=== PATIENT | female | born 1990 | race Hispanic/Latino ===

== ENCOUNTER 2019-06-24 18:49 | Emergency (ER) | payer OTHER ==
--- NOTE | 2019-06-24 19:51 | ER ---
Nurse's Notes [facility] Name: Yehuda Varghese Age: 29 yrs Sex: Female : 1990 Arrival Date: 06/24/2019 Time: 18:50 Bed 10 Private MD: Diagnosis: Conjunctivitis Presentation: 06/24 18:51 Presenting complaint: Patient states: yesterday i think i have pink on my L eye, it hj hurts and it isidro;. Transition of care: patient was not received from another setting of care. Onset of symptoms was June 24, 2019. Risk Assessment: Do you want to hurt yourself or someone else? Patient reports no desire to harm self or others. Initial Sepsis Screen: Does the patient meet any 2 criteria? No. Patient's initial sepsis screen is negative. Does the patient have a suspected source of infection? No. Patient's initial sepsis screen is negative. Care prior to arrival: None. 18:51 Method Of Arrival: Ambulatory 18:51 Acuity: HOWIE 4 hj Historical: - Allergies: 18:52 No Known Allergies; hj - PMHx: 18:52 None; hj - Immunization history:: Adult Immunizations up to date. - Ebola Screening: : Patient denies travel to an Ebola-affected area in the 21 days before illness onset. Screenin:29 Abuse screen: Denies threats or abuse. Denies injuries from another. Nutritional aj1 screening: No deficits noted. Tuberculosis screening: No symptoms or risk factors identified. Fall Risk None identified. Assessment: 20:27 General: Appears in no apparent distress. comfortable, Behavior is calm, cooperative, aj1 appropriate for age. Pain:. 20:27 Pain: Complains of pain in left eye. Neuro: Level of Consciousness is awake, alert, aj1 obeys commands. Cardiovascular: Patient's skin is warm and dry. Respiratory: Airway is patent Respiratory effort is even, unlabored, Respiratory pattern is regular, symmetrical. GI: No signs and/or symptoms were reported involving the gastrointestinal system. : No signs and/or symptoms were reported regarding the genitourinary system. EENT: Sclera/Cornea are reddened in outer aspect of conjuctiva of left eye, iris of left eye and inner aspect of conjunctiva of left eye. Derm: No signs and/or symptoms reported regarding the dermatologic system. Skin is pink, warm \T\ dry. normal. Musculoskeletal: No signs and/or symptoms reported regarding the musculoskeletal system. Circulation, motion, and sensation intact. Vital Signs: 18:52 BP 107 / 65; Pulse 82; Resp 18; Temp 98.1(O); Pulse Ox 100% on R/A; Weight 58.97 kg; hj Height 5 ft. 2 in. (157.48 cm); Pain 7/10; 18:52 Body Mass Index 23.78 (58.97 kg, 157.48 cm) ED Course: 18:50 Patient arrived in ED. rg4 18:51 Triage completed. hj 18:52 Arm band placed on left wrist. hj 19:11 Porsha Shukla FNP-C is [facility]. kb 19:11 Eladio Aguilar MD is Attending Physician. kb 20:27 Olesya Thompson, RN is Primary Nurse. aj1 20:27 Patient has correct armband on for positive identification. aj1 20:27 No provider procedures requiring assistance completed. Patient did not have IV access aj1 during this emergency room visit. Administered Medications: No medications were administered Outcome: 19:51 Discharge ordered by MD. kb 20:27 Discharged to home ambulatory. aj1 20:27 Condition: good 20:27 Discharge instructions given to patient, Instructed on discharge instructions, follow up and referral plans. medication usage, Demonstrated understanding of instructions, follow-up care, medications, Prescriptions given X 1. 20:29 Patient left the ED. aj1 Signatures: Porsha Shukla FNP-C FNP-Ckb Johnson, Angela, RN RN aj1 Neo Holland RN RN hj Garcia, Rubi rg4
--- NOTE | 2019-06-24 19:51 | EDPHYS ---
Physician Documentation [facility] Name: Yehuda Varghese Age: 29 yrs Sex: Female : 1990 Arrival Date: 06/24/2019 Time: 18:50 Bed 10 Private MD: ED Physician Eladio Aguilar HPI: 06/24 20:11 This 29 yrs old Female presents to ER via Ambulatory with complaints of Eye kb Problem. 20:11 The patient is experiencing burning, matting or discharge, redness, itching, The kb patient sustained None. to the left eye, caused by an unknown mechanism. Onset: The symptoms/episode began/occurred today. Duration: the symptoms are continuous. Aggravated by nothing. Alleviated by nothing. Associated signs and symptoms: Pertinent positives: None. Severity of symptoms: At their worst the symptoms were mild in the emergency department the symptoms are unchanged. The patient has not experienced similar symptoms in the past. The patient has not recently seen a physician. Pt reports redness, burning/itching, and matting to left eye that started this morning. . Historical: - Allergies: 18:52 No Known Allergies; hj - PMHx: 18:52 None; hj - Immunization history:: Adult Immunizations up to date. - Ebola Screening: : Patient denies travel to an Ebola-affected area in the 21 days before illness onset. ROS: 20:11 Constitutional: Negative for fever, chills, and weight loss, ENT: Negative for injury, kb pain, and discharge, Neck: Negative for injury, pain, and swelling, Cardiovascular: Negative for chest pain, palpitations, and edema, Respiratory: Negative for shortness of breath, cough, wheezing, and pleuritic chest pain, Abdomen/GI: Negative for abdominal pain, nausea, vomiting, diarrhea, and constipation, MS/Extremity: Negative for injury and deformity, Skin: Negative for injury, rash, and discoloration, Neuro: Negative for headache, weakness, numbness, tingling, and seizure. 20:11 Eyes: Positive for itching, matting, redness. Exam: 20:11 Constitutional: This is a well developed, well nourished patient who is awake, alert, kb and in no acute distress. Head/Face: Normocephalic, atraumatic. ENT: Nares patent. No nasal discharge, no septal abnormalities noted. Tympanic membranes are normal and external auditory canals are clear. Oropharynx with no redness, swelling, or masses, exudates, or evidence of obstruction, uvula midline. Mucous membranes moist. Neck: Trachea midline, no thyromegaly or masses palpated, and no cervical lymphadenopathy. Supple, full range of motion without nuchal rigidity, or vertebral point tenderness. No Meningismus. Chest/axilla: Normal chest wall appearance and motion. Nontender with no deformity. No lesions are appreciated. Cardiovascular: Regular rate and rhythm with a normal S1 and S2. No gallops, murmurs, or rubs. Normal PMI, no JVD. No pulse deficits. Respiratory: Lungs have equal breath sounds bilaterally, clear to auscultation and percussion. No rales, rhonchi or wheezes noted. No increased work of breathing, no retractions or nasal flaring. Abdomen/GI: Soft, non-tender, with normal bowel sounds. No distension or tympany. No guarding or rebound. No evidence of tenderness throughout. Skin: Warm, dry with normal turgor. Normal color with no rashes, no lesions, and no evidence of cellulitis. MS/ Extremity: Pulses equal, no cyanosis. Neurovascular intact. Full, normal range of motion. Neuro: Awake and alert, GCS 15, oriented to person, place, time, and situation. Cranial nerves II-XII grossly intact. Motor strength 5/5 in all extremities. Sensory grossly intact. Cerebellar exam normal. Normal gait. 20:11 Eyes: Conjunctiva: injected, in the left eye. Vital Signs: 18:52 BP 107 / 65; Pulse 82; Resp 18; Temp 98.1(O); Pulse Ox 100% on R/A; Weight 58.97 kg; hj Height 5 ft. 2 in. (157.48 cm); Pain 7/10; 18:52 Body Mass Index 23.78 (58.97 kg, 157.48 cm) MDM: 19:27 Patient medically screened. kb 20:11 Data reviewed: vital signs, nurses notes. Data interpreted: Pulse oximetry: on room air kb is 100 %. Interpretation: normal. 20:29 Counseling: I had a detailed discussion with the patient and/or guardian regarding: the kb historical points, exam findings, and any diagnostic results supporting the discharge/admit diagnosis, the need for outpatient follow up, an opthalmologist, to return to the emergency department if symptoms worsen or persist or if there are any questions or concerns that arise at home. Administered Medications: No medications were administered Disposition: 21:15 Co-signature as Attending Physician, Eladio Aguilar MD. rn Disposition: 06/24/19 19:51 Discharged to Home. Impression: Conjunctivitis. - Condition is Stable. - Discharge Instructions: Bacterial Conjunctivitis, [id number]. - Prescriptions for Vigamox 0.5 % Ophthalmic Drops - instill 1 drop by OPHTHALMIC route every 8 hours for 7 days; 5 milliliter. - Medication Reconciliation Form, Thank You Letter, Antibiotic Education, Prescription Opioid Use form. - Follow up: Emergency Department; When: As needed; Reason: Worsening of condition. Follow up: Private Physician; When: 2 - 3 days; Reason: Recheck today's complaints, Continuance of care, Re-evaluation by your physician. Signatures: Porsha Shukla, JENISE GONZALEZP-Olesya Betancur RN RN aj1 Eladio Aguilar MD MD rn Joaquin, Henry, RN RN Corrections: (The following items were deleted from the chart) 20:29 19:51 06/24/2019 19:51 Discharged to Home. Impression: Conjunctivitis. Condition is aj1 Stable. Forms are Medication Reconciliation Form, Thank You Letter, Antibiotic Education, Prescription Opioid Use. Follow up: Emergency Department; When: As needed; Reason: Worsening of condition. Follow up: Private Physician; When: 2 - 3 days; Reason: Recheck today's complaints, Continuance of care, Re-evaluation by your physician. kb
== END 2019-06-24 20:29 | disposition home or self-care (01) ==
LOC: ER 18:49
DX: H10.9 Unspecified conjunctivitis (principal)
CPT/HCPCS: 99282